=== PATIENT | female | born 1995 | race Caucasian/White ===

== ENCOUNTER 2017-09-02 22:51 | Emergency (ER) | payer OTHER ==
[2017-09-02] MEDS ORDERED: Sodium Chloride 0.9% 1,000 ML IV STA (23:51)
--- NOTE | 2017-09-03 00:09 | ED PDOC ---
HPI: General Adult Time Seen by Provider: 09/02/17 23:00 Chief Complaint (Nursing): Flu-like Symptoms Chief Complaint (Provider): Flu-like Symptoms History Per: Patient History/Exam Limitations: no limitations Onset/Duration Of Symptoms: Days (x 1) Current Symptoms Are (Timing): Still Present Additional Complaint(s): 22 year old female with no past medical history presents to the ED complaining of body pain, nausea and vomiting since last night. She also reports a dry cough and sore throat. In the ED, patient had a temperature of 103 degrees. PMD: none provided Past Medical History Reviewed: Historical Data, Nursing Documentation, Vital Signs Vital Signs: Last Vital Signs Temp 98.6 F 09/03/17 02:45 Pulse 95 H 09/03/17 02:45 Resp 16 09/03/17 02:45 BP 103/60 09/03/17 02:45 Pulse Ox 98 09/03/17 02:45 - Medical History PMH: No Chronic Diseases - Surgical History Surgical History: No Surg Hx - Family History Family History: States: Unknown Family Hx - Home Medications Home Medications: Ambulatory Orders Medication Instructions Recorded Oseltamivir [Tamiflu] 75 mg PO BID #10 cap 09/03/17 - Allergies Allergies/Adverse Reactions: Allergies Allergy/AdvReac Type Severity Reaction Status Date / Time pollen extracts Allergy ITCHING Verified 09/02/17 22:54 soy Allergy ITCHING Verified 09/02/17 22:53 Review of Systems ROS Statement: Except As Marked, All Systems Reviewed And Found Negative Constitutional: Positive for: Other (body aches) ENT: Positive for: Throat Pain Respiratory: Positive for: Cough Gastrointestinal: Positive for: Nausea, Vomiting Physical Exam - Reviewed Nursing Documentation Reviewed: Yes Vital Signs Reviewed: Yes - Physical Exam Appears: Positive for: Non-toxic, No Acute Distress Head Exam: Positive for: ATRAUMATIC, NORMOCEPHALIC Skin: Positive for: Normal Color, Warm, Dry Eye Exam: Positive for: EOMI, Normal appearance, PERRL Neck: Positive for: Normal, Painless ROM, Supple Cardiovascular/Chest: Positive for: Regular Rate, Rhythm. Negative for: Murmur Respiratory: Positive for: Normal Breath Sounds, Other (slight dry cough). Negative for: Wheezing Gastrointestinal/Abdominal: Positive for: Normal Exam, Soft Back: Positive for: Normal Inspection. Negative for: L CVA Tenderness, R CVA Tenderness Extremity: Positive for: Normal ROM. Negative for: Deformity Neurologic/Psych: Positive for: Alert, Oriented. Negative for: Motor/Sensory Deficits - ECG O2 Sat by Pulse Oximetry: 96 (RA) Pulse Ox Interpretation: Normal - Radiology X-Ray: Interpreted by Me, Viewed By Me X-Ray Interpretation: No Acute Disease Medical Decision Making Medical Decision Making: Time: 23:51 Impression: rule out flu ad strep Initial Plan: --Tylenol 650 mg PO --Toradol 30 mg IV --Zofran Inj 4 mg IV --Normal Saline IV 999 mls/hr --throat cx --Influenza AB --Rapid strep Influenza AB --results are negative. Rapid strep --results are negative. fever resolved Patient is being treated for flu-like symptoms with a Rx for Tamiflu. Follow up with PMD in 1-2 days. Return to ED if symptoms persist or worsen. discussed plan with pt and her mom at bedside. Scribe Attestation: Documented by Kandy Wagner, acting as a scribe for Melba Farris MD. Provider Scribe Attestation: All medical record entries made by the Scribe were at my direction and personally dictated by me. I have reviewed the chart and agree that the record accurately reflects my personal performance of the history, physical exam, medical decision making, and the department course for this patient. I have also personally directed, reviewed, and agree with the discharge instructions and disposition. Disposition - Clinical Impression Clinical Impression: Influenza-like symptoms - Patient ED Disposition Is Patient to be Admitted: No Counseled Patient/Family Regarding: Studies Performed, Diagnosis, Need For Followup - Disposition Referrals: [facility] [Outside] [facility] [Outside] Disposition: Routine/Home Disposition Time: 01:30 Condition: IMPROVED Additional Instructions: follow up with your primary doctor in 1-2 days return to the ED with any worsening or concerning symptoms Prescriptions: Oseltamivir [Tamiflu] 75 mg PO BID #10 cap Instructions: Fever, Adult (DC) Forms: [facility] (Swedish), [facility] ED School/Work Excuse
[2017-09-03 02:46] VITALS: BP 103/60; PULSE 95; RESP 16; TEMP 98.6
[2017-09-03 06:12] VITALS: O2SAT 96
--- NOTE | 2017-09-03 09:27 | RAD ---
HISTORY: cough COMPARISON: No prior. TECHNIQUE: Chest PA and lateral FINDINGS: LUNGS: No active pulmonary disease. PLEURA: No significant pleural effusion identified. No pneumothorax apparent. CARDIOVASCULAR: Normal. OSSEOUS STRUCTURES: Mild scoliosis. No significant abnormalities. VISUALIZED UPPER ABDOMEN: Normal. OTHER FINDINGS: None. IMPRESSION: No active disease.
== END 2017-09-03 02:45 | disposition home or self-care (01) ==
LOC: H.ER 22:51
DX: J11.1 Influenza due to unidentified influenza virus with other respiratory manifestations (principal)
CPT/HCPCS: 71046; 81025; 87070; 87430; 87804; 96374; 99282; J1885; J2405; J7040